=== PATIENT | female | born 1990 | race Caucasian/White ===

== ENCOUNTER → 2017-05-02 | Outpatient (REF) ==
[~2017-05-02] MED LIST: CEPHALEXIN500 M1 PO; MOTRIN 600600 MG/TAB PO; OYSCO 500500 M1 PO; PERCOCET 325 MG1 TA2 PO; PRENATAL MVI; PROCARDIA XL 3030 MG PO
== END ==
LOC: WSOH 17:30
DX: Z02.89 Encounter for other administrative examinations (principal)

== ENCOUNTER 2018-12-09 17:05 | Emergency (ER) | payer SELFPAY ==
[~2018-12-09] VITALS: Ht 170.2 cm; Wt 75.0 kg
[2018-12-09 17:15] VITALS: BP 142/84; TEMP 99.3
[2018-12-09 18:45] VITALS: PULSE 99
[2018-12-09 18:50] LABS: HIV 1/2 Antibodies Non-Reactive; HIV-1p24 Antigen Non-Reactive
[2018-12-10 23:07] LABS: HEPATITIS B SURFACE ANTIBODY 23.5 (()); HEPATITIS B SURFACE ANTIGEN Negative (Negative); HEPATITIS C VIRUS ANTIBODY Negative (Negative)
== END 2018-12-09 18:45 | disposition home or self-care (01) ==
LOC: COL.ER 17:05
PROVIDERS: Nurse Practitioner
DX: O9A.212 Injury, poisoning and certain other consequences of external causes complicating pregnancy, second trimester (principal); S69.92XA Unspecified injury of left wrist, hand and finger(s), initial encounter; Z79.1 Long term (current) use of non-steroidal anti-inflammatories (NSAID); Z3A.23 23 weeks gestation of pregnancy; W46.1XXA Contact with contaminated hypodermic needle, initial encounter

== ENCOUNTER → 2019-02-04 | Outpatient (CLI) | payer OTHER | LOC: SUN.DIA 08:33 | DX: O24.419 Gestational diabetes mellitus in pregnancy, unspecified control (principal); Z3A.35 35 weeks gestation of pregnancy | CPT/HCPCS: G0108 ==

== ENCOUNTER → 2019-02-18 | Outpatient (CLI) | payer OTHER | LOC: DIA.ED 10:09 → SUN.DIA 11:14 → DIA.ED 14:51 | DX: O24.419 Gestational diabetes mellitus in pregnancy, unspecified control (principal); Z3A.35 35 weeks gestation of pregnancy | CPT/HCPCS: G0108 ==

== ENCOUNTER → 2019-03-09 | Outpatient (CLI) | payer OTHER | LOC: DIA.ED 09:39 | DX: O24.419 Gestational diabetes mellitus in pregnancy, unspecified control (principal); Z3A.35 35 weeks gestation of pregnancy | CPT/HCPCS: G0108 ==

== ENCOUNTER → 2019-03-29 | Outpatient (CLI) | payer OTHER | LOC: DIA.ED 11:05 | DX: O24.419 Gestational diabetes mellitus in pregnancy, unspecified control (principal); Z3A.38 38 weeks gestation of pregnancy | CPT/HCPCS: G0108 ==

== ENCOUNTER 2019-04-11 11:06 | Inpatient (IN) | payer OTHER ==
[2019-04-11] VITALS (23 sets, daily range): BP systolic 12–147; BP diastolic 70–92; PULSE 68–105; TEMP 97.5–98.9
[~2019-04-11] VITALS: Ht 170.2 cm; Wt 86.4 kg
--- NOTE | 2019-04-11 11:30 | NUR ---
G2L1 AT 39.3 WEEKS GESTATION TO LDR2 WITH C/O LEAKING OF FLUID. PATIENT STATES THAT SHE FELT A SMALL AMOUNT OF FLUID LEAKING AROUND 2300 LAST NIGHT AND HAS CONTINUED TO HAVE SMALL AMOUNTS OF FLUID LEAK THROUGHOUT THE MORNING. PATIENT CHANGED INTO GOWN AND WEDGED TO LEFT SIDE IN BED. EFMS EXPLAINED AND APPLIED. FHR 140 BPM AND REACTIVE. NO CTX PER [facility] OR PATIENT REPORTS. VSS. AMNIOTRACE INSERTED INTO VAGINA TURNS DARK BLUE. SVE 1/80/-2. NO FLUID NOTED WITH EXAM. 2ND AMNIOTRACE INSERTED INTO VAGINA ALSO TURNS DARK BLUE. PLAN OF CARE REVIEWED WITH PATIENT AND SPOUSE.
--- NOTE | 2019-04-11 12:12 | NUR ---
1212-Recieved report from SAAD Law. Consents reviewed and signed. consent reviewed and signed. 1248-IV to left hand, blood obtained and sent to lab, LR infusing per orders, Pen G per GBS + protocol. 1255-Patient off EFM to bathroom, voids 300ml clear yellow urine.
[2019-04-11 13:34] LABS: BASO % 0.3 % (0.0-2.0); EOS % 0.4 % (0-4.0); GRAN # 8.3 (1.4-6.5); GRAN % 80.1 % (42.2-75.2); HEMATOCRIT 42.7 % (37.0-47.0); HEMOGLOBIN 14.5 g/dl (12.5-16.0); LYMPH # 1.1 (1.2-3.4); LYMPH % 10.7 % (20.0-51.0); MEAN CELL VOLUME 90 fl (80.0-100.0); MEAN CORPUSCULAR HEMOGLOBIN 31 pg (27.0-31.0); MEAN CORPUSCULAR HGB CONC 34 g/dl (33.0-37.0); MEAN PLATELET VOLUME 12.2 fl (7.4-10.4); MONO # 0.7 (0.1-0.6); MONO % 6.8 % (1.7-9.3); PLATELET COUNT 183 K/mm3 (130-400); RED BLOOD COUNT 4.75 M/mm3 (4.10-5.30); REDCELL DISTRIBUTION WIDTH-CV 12.7 % (11.5-14.5)
--- NOTE | 2019-04-11 14:00 | NUR ---
1400-Patient up to bathroom, returns to bedside. Dr. Flower to room, reviews plan of care with patient. Patient tearful discussing options. MD leaves room to allow patient and spouse to discuss options. 1420-Dr. Flower back to room again reviews options. 1425-Patient and MD decide for repeat C/S. IVF bolus. Notified aida Rushing CRNA.
--- NOTE | 2019-04-11 14:40 | NUR ---
1440-OFF EFM, abodmen scrubbed. 1450-To OR ambulatory with spouse.
--- NOTE | 2019-04-11 15:55 | NUR ---
1555-To PACU via bed. A&O x4. Reports no pain. IVF to left hand. Armando to DD, clear yellow urine. Abdominal binder removed. Dressing C/D/I, fundal massage firm, lochia WNL. Recieved report from BRY Rushing, Updated on recovery plan of care. 1630-To Room via bed. Remains A&O x4. Denies pain. Fundus remains firm, lochia WNL. VSS. see flow record.
[2019-04-12 02:00] VITALS: BP 114/67; PULSE 70; TEMP 98.5
[2019-04-12 08:25] VITALS: BP 115/66; PULSE 68; TEMP 97.6
--- NOTE | 2019-04-12 12:45 | NUR ---
Initial visit; Parent thanked [employer] for offering congratulations and God's blessings for the of her daughter. [employer] thanked family for choosing [facility].
[2019-04-12 14:00] VITALS: BP 137/90; PULSE 80; TEMP 98.1
[2019-04-12 21:45] VITALS: BP 123/71; PULSE 72; TEMP 98.2
[2019-04-13 08:55] VITALS: BP 131/75; PULSE 81; TEMP 98.2
[2019-04-13] MEDS ORDERED: PERCOCET 325 MG1 TA2 PO (08:56)
[2019-04-13] MEDS ORDERED: IBU800 M1 PO (08:56)
== END 2019-04-13 14:45 | disposition home or self-care (01) | DRG 788 ==
LOC: LDRO 11:06 → LDR 12:48 → OB 12:48
PROVIDERS: ADMIT Student in an Organized Health Care Education/Training Program
PROC: 10D00Z1 Extraction of Products of Conception, Low, Open Approach (ICD-10-PCS; principal; 2019-04-11)
DX: O34.03 Maternal care for unspecified congenital malformation of uterus, third trimester (principal); O24.420 Gestational diabetes mellitus in childbirth, diet controlled; Q51.3 Bicornate uterus; Z3A.39 39 weeks gestation of pregnancy; Z37.0 Single live birth; O99.824 Streptococcus B carrier state complicating childbirth
CPT/HCPCS: J0690; J1885; J2175; J2370; J2405; J2540; J2590; J3010; J7120